=== PATIENT | female | born 1970 | race Caucasian/White ===

== ENCOUNTER → 2017-04-02 11:04 | Outpatient (CLI) | payer MEDICARE | END | disposition home or self-care (01) | LOC: D.CT 11:04 | DX: S00.83XA Contusion of other part of head, initial encounter (principal) ==

== ENCOUNTER 2018-03-20 08:55 | Emergency (ER) | payer MEDICARE ==
[2018-03-20 09:41] LABS: BASOPHILS 0.2 % (0-2); EOSINOPHILS 1.2 % (0-7); HEMATOCRIT 47.8 % (36.0-48.0); HEMOGLOBIN 16.9 g/dL (12-16); IMMATURE GRANULOCYTES 0.8 % (0-5); LYMPHOCYTES 29.3 % (15-50); MCH 32.6 pg (26.0-34.0); MCHC 35.4 g/dL (31.0-37.0); MCV 92.1 fL (80.0-100.0); MEAN PLATELET VOLUME 12.6 fL (7.4-10.4); MONOCYTES 7.3 % (2-11); NEUTROPHILS 61.2 % (40-80); RBC 5.19 10x6/uL (4.00-5.40); WBC 15.4 10x3/uL (4.8-10.8)
[2018-03-20 09:42] LABS: PLATELET COUNT 257 10x3/uL (130-400)
[2018-03-20 09:43] LABS: APPEARANCE HAZY (CLEAR); BILIRUBIN NEGATIVE (NEGATIVE); COLOR YELLOW (YELLOW); GLUCOSE NEGATIVE (NEGATIVE); KETONE NEGATIVE (NEGATIVE); NITRITE NEGATIVE (NEGATIVE); PROTEIN 1+ mg/dL (NEGATIVE); UROBILINOGEN NORMAL (NORMAL)
[2018-03-20 09:44] LABS: BACTERIA MANY /hpf (NONE SEEN); EPITHELIAL CELLS 0-5 /hpf (0-5); RED CELLS - URINE NONE SEEN /hpf (0-5); WHITE CELLS - URINE 0-5 /hpf (0-5)
[2018-03-20 10:04] LABS: ALBUMIN 3.8 g/dL (3.4-5.0); ANION GAP 13.8 mmol/L (8-16); BILIRUBIN - TOTAL 0.29 mg/dL (0.2-1.3); CALCIUM 9.4 mg/dL (8.5-10.1); CARBON DIOXIDE 28.7 mmol/L (21.0-32.0); CREATININE - SERUM 0.9 mg/dL (0.6-1.3); POTASSIUM - SERUM 3.5 mmol/L (3.5-5.1); PROTEIN - SERUM 7.9 g/dL (6.4-8.2)
== END 2018-03-20 14:12 | disposition home or self-care (01) ==
LOC: D.ER 08:55
PROVIDERS: Emergency Medicine
DX: R19.7 Diarrhea, unspecified (principal); E86.0 Dehydration; K50.90 Crohn's disease, unspecified, without complications

== ENCOUNTER 2018-04-29 18:00 | Outpatient (CLI) | payer MEDICARE | END 2018-04-29 23:59 | disposition home or self-care (01) | LOC: D.MAMMO 18:00 | DX: Z12.31 Encounter for screening mammogram for malignant neoplasm of breast (principal) ==

== ENCOUNTER 2018-06-01 08:00 | Outpatient (CLI) | payer MEDICARE | END 2018-06-01 09:00 | disposition home or self-care (01) | LOC: D.MAMMO 08:00 | DX: R92.8 Other abnormal and inconclusive findings on diagnostic imaging of breast (principal) ==

== ENCOUNTER 2018-07-06 21:07 | Emergency (ER) | payer MEDICARE ==
[~2018-07-06] VITALS: Ht 162.6 cm; Wt 59.1 kg
[2018-07-06 21:11] VITALS: Ht 162.6 cm; Wt 59.1 kg
[2018-07-06] MEDS ORDERED: ATIVAN2 MG PO (21:13)
[2018-07-06] MEDS ORDERED: [UNRECOGNIZED DRUG - REMARK] (21:13)
[2018-07-06 21:53] VITALS: BP 134/87
== END 2018-07-06 21:47 | disposition home or self-care (01) ==
LOC: D.ER 21:07
DX: F43.22 Adjustment disorder with anxiety (principal); F17.200 Nicotine dependence, unspecified, uncomplicated

== ENCOUNTER 2019-05-09 07:01 | Observation (INO) | payer MEDICARE ==
[~2019-05-09] VITALS: Ht 162.6 cm; Wt 65.8 kg
[~2019-05-09 07:01] MED LIST: ATIVAN2 MG PO; [UNRECOGNIZED DRUG - REMARK]
[2019-05-09] MEDS ORDERED: TENORMIN25 MG PO (07:10)
[2019-05-09] MEDS ORDERED: REXULTI1 MG PO (07:10)
[2019-05-09] MEDS ORDERED: CATAPRES0.1 MG PO (07:10)
[2019-05-09] MEDS ORDERED: AMBIEN10 MG PO (07:11)
[2019-05-09] MEDS ORDERED: AMITRIPTYLINE100 MG PO (07:11)
[2019-05-09] MEDS ORDERED: APRISO0.375 GM PO (07:12)
[2019-05-09] MEDS ORDERED: PHENERGAN25 M1 PO (07:12)
[2019-05-09] MEDS ORDERED: ZOFRAN8 MG PO (07:12)
[2019-05-09 07:50] LABS: APPEARANCE CLEAR (CLEAR); BILIRUBIN NEGATIVE (NEGATIVE); COLOR YELLOW (YELLOW); GLUCOSE NEGATIVE (NEGATIVE); KETONE NEGATIVE (NEGATIVE); NITRITE NEGATIVE (NEGATIVE); PROTEIN NEGATIVE (NEGATIVE); UROBILINOGEN NORMAL (NORMAL)
[2019-05-09 07:57] LABS: ALBUMIN 3.4 g/dL (3.4-5.0); ALKALINE PHOSPHATASE 107 U/L (46-116); ALT (SGPT) 10 U/L (10-68); CALC OSMOLALITY 275 mosm/kg (275-300); CALCIUM 8.7 mg/dL (8.5-10.1); CHLORIDE - SERUM 104 mmol/L (98-107); CREATININE - SERUM 0.8 mg/dL (0.6-1.3); GLUCOSE 137 mg/dL (74-106); POTASSIUM - SERUM 3.8 mmol/L (3.5-5.1); PROTEIN - SERUM 7.1 g/dL (6.4-8.2); SODIUM 138 mmol/L (136-145); UREA NITROGEN 8 mg/dL (7-18); eGFR NON AFRICAN AMERICAN 81 mL/min (90-120)
[2019-05-09 07:59] LABS: BASOPHILS 0.1 % (0-2); EOSINOPHILS 0.7 % (0-7); HEMOGLOBIN 15.9 g/dL (12-16); IMMATURE GRANULOCYTES 0.5 % (0-5); MCHC 35.3 g/dL (31.0-37.0); MCV 90.5 fL (80.0-100.0); MEAN PLATELET VOLUME 12.8 fL (7.4-10.4); MONOCYTES 5.6 % (2-11); NEUTROPHILS 73.1 % (40-80); RBC 4.97 10x6/uL (4.00-5.40); WBC 14.6 10x3/uL (4.8-10.8)
[2019-05-09 08:00] LABS: LIPASE 106 U/L (73-393); PLATELET COUNT 176 10x3/uL (130-400); TROPONIN-I < 0.017 ng/mL (0.000-0.060)
--- NOTE | 2019-05-09 09:06 | NUR ---
THIS NURSE WENT INTO PATIENT ROOM TO REASSESS HER AND PT WAS LYING ON HER LEFT SIDE ROCKING BACK AND FORTH REPORTING THE PAIN WAS BACK AND COMING IN WAVES. PT IS [id number]. PT NEEDS AND STATUS REPORTED TO DR ROCHA WHO STATES HE SAYS HE WILL ADMIT PATIENT.
--- NOTE | 2019-05-09 09:31 | NUR ---
PT TO CT
--- NOTE | 2019-05-09 09:35 | NUR ---
PT BACK FROM CT
[2019-05-09 09:37] VITALS: BP 172/83
--- NOTE | 2019-05-09 11:00 | NUR ---
RECEIVED TO ROOM 2207 VAI WC FROM . A/O X3. NO C/O AT THIS TIME. SKIN INTACT WTIHOUT REDNESS. REPORTS PAIN IMPROVED AT THIS TIME.
[2019-05-09 11:42] VITALS: BP 152/77; BMI 24.9
--- NOTE | 2019-05-09 12:55 | NUR ---
REQUESTED AND GIVEN 2MG MORPHINE SLOW IVP FOR C/O ABDOMINAL PAIN LEVEL 5. WILL MONITOR.
--- NOTE | 2019-05-09 15:23 | NUR ---
REQUESTED AND GIVEN 2MG MORPHINE SLOW IVP FOR C/O ABDOMINAL PAIN LEVEL 6. WILL MONITOR.
[2019-05-09 17:12] VITALS: BP 126/75
--- NOTE | 2019-05-09 17:36 | NUR ---
REQUESTED AND GIVNE 2MG MORPHINE SLOW IVP FOR C/O ABDOMINAL PAIN LEVEL 6. WILL MONITOR.
--- NOTE | 2019-05-09 17:57 | NUR ---
ATE ONLY A FEW BITES OF CL SUPPER. DENIES NEEDS. NO CHANGES NOTED. VOICES" NURSE HERE. AWAITING ORDERS.
[2019-05-09 19:30] VITALS: BP 134/74
--- NOTE | 2019-05-09 20:30 | NUR ---
PT C/O OF SWEATY FACE AND DIFFICULTY FALLING ASLEEP. STATES SHE TAKES AMBIEN FOR SLEEP AT HOME CLONIDE FOR HER SWEATS AT HOME. MED REC HAS BEEN COMPLETED, BUT MED LIST IS NOT COMPLETED BY PROVIDER. PT WORRIED ABOUT HER DIFFULTY FALLING HER SLEEP. WILL NOTIFY CHILD NUTRITION DIRECTOR ABOUT PT'S NEEDS. CL WITHIN REACH.
--- NOTE | 2019-05-09 22:00 | NUR ---
CALLED [facility] RUTH. SHOP MECHANIC HELPER STATES TO ADMINISTER 2MG X1 DOSE OF LUNESTA AND CLONIDINE 0.1 X1 DOSE FOR THE NIGHT BEFORE SHE IS SEEN BY PROVIDER IN THE AM. ORDERED RECIEVED AND READ BACK TO [facility] RUTH. ORDERS PUT IN AND AWAITING ANODE REBUILDER TO PULL MEDS FROM [facility].
--- NOTE | 2019-05-09 22:52 | NUR ---
CLONIDINE AND LUNESTA GIVEN AT THIS TIME. PT VOICED THANKS. WILL CPOC.
[2019-05-10 00:25] VITALS: BP 151/83
[2019-05-10 05:15] VITALS: BP 116/57
[2019-05-10 06:10] LABS: BASOPHILS 0 % (0-2); EOSINOPHILS 0 % (0-7); HEMATOCRIT 39.6 % (36.0-48.0); HEMOGLOBIN 13.7 g/dL (12-16); IMMATURE GRANULOCYTES 0.3 % (0-5); MCH 31.6 pg (26.0-34.0); MCHC 34.6 g/dL (31.0-37.0); MCV 91.5 fL (80.0-100.0); MEAN PLATELET VOLUME 12.6 fL (7.4-10.4); MONOCYTES 4.2 % (2-11); NEUTROPHILS 81.5 % (40-80); PLATELET COUNT 148 10x3/uL (130-400); RBC 4.33 10x6/uL (4.00-5.40); RDW 13.1 % (11.5-14.5); WBC 15.1 10x3/uL (4.8-10.8)
[2019-05-10 06:28] LABS: ALBUMIN 2.6 g/dL (3.4-5.0); ALKALINE PHOSPHATASE 81 U/L (46-116); ALT (SGPT) 10 U/L (10-68); BILIRUBIN - TOTAL 0.17 mg/dL (0.2-1.3); CALC OSMOLALITY 280 mosm/kg (275-300); CALCIUM 7.8 mg/dL (8.5-10.1); CHLORIDE - SERUM 107 mmol/L (98-107); CREATININE - SERUM 0.7 mg/dL (0.6-1.3); GLUCOSE 144 mg/dL (74-106); POTASSIUM - SERUM 3.5 mmol/L (3.5-5.1); PROTEIN - SERUM 5.7 g/dL (6.4-8.2); SODIUM 141 mmol/L (136-145); eGFR NON AFRICAN AMERICAN > 90 mL/min (90-120)
[2019-05-10 06:40] LABS: UREA NITROGEN 5 mg/dL (7-18)
[2019-05-10 07:45] LABS: ERYTHROCYTE SEDIMENTATION RATE 14 mm/hr (0-20)
[2019-05-10 07:48] VITALS: BP 127/60
--- NOTE | 2019-05-10 08:35 | NUR ---
PT RESTING IN BED, SHIFT ASSESSMENT PERFORMED. DENIES ANY NEEDS AT THIS TIME. WILL CONT TO FOLLOW POC
[2019-05-10 10:15] VITALS: Ht 162.6 cm; Wt 65.8 kg
[2019-05-10 11:41] VITALS: BP 116/53
--- NOTE | 2019-05-10 17:25 | NUR ---
CALLED PREDNISONE TAPER IN TO [facility] ON [address] DISCHARGE INSTRUCTIONS REVIEWED WITH PT AND ALL QUESTIONS ANSWERED. PIV REMOVED WITH CATHETER TIP INTACT. TELEMETRY REMOVED AND GIVEN TO COLLISION ESTIMATOR. ASSISTED PT TO FRONT OF HOSPITAL VIA WHEELCHAIR WHERE SHE LEFT WITH SPOUSE
== END 2019-05-10 17:29 | disposition home or self-care (01) ==
LOC: D.ER 07:01 → D.M3 09:20 → OBSVTIME 09:21 → D.M3 05-10 17:29
PROVIDERS: Family Medicine; Internal Medicine Gastroenterology; ADMIT Emergency Medicine; ATTEND Emergency Medicine
DX: K50.90 Crohn's disease, unspecified, without complications (principal); I10 Essential (primary) hypertension; K59.00 Constipation, unspecified; R63.4 Abnormal weight loss; R11.2 Nausea with vomiting, unspecified

== ENCOUNTER → 2021-01-22 10:54 | Outpatient (CLI) | payer MEDICARE ==
[2019-05-10 10:15] VITALS: BMI 24.9
[~2021-01-22 10:54] MED LIST changes: +AMBIEN10 MG PO; +AMITRIPTYLINE100 MG PO; +APRISO0.375 GM PO; +CATAPRES0.1 MG PO; +PHENERGAN25 M1 PO; +REXULTI1 MG PO; +TENORMIN25 MG PO; +ZOFRAN8 MG PO
[2021-01-22 11:21] LABS: BASOPHILS 0.3 % (0-2); EOSINOPHILS 2.2 % (0-7); HEMATOCRIT 43.1 % (36.0-48.0); HEMOGLOBIN 14.3 g/dL (12-16); IMMATURE GRANULOCYTES 0.5 % (0-5); LYMPHOCYTE ABS# 3.57 10x3/uL (1.18-3.74); LYMPHOCYTES 36.3 % (15-50); MCH 31.9 pg (26.0-34.0); MCHC 33.2 g/dL (31.0-37.0); MCV 96.2 fL (80.0-100.0); MONOCYTES 8.9 % (2-11); NEUTROPHIL ABS# 5.09 10x3/uL (1.56-6.13); NEUTROPHILS 51.8 % (40-80); PLATELET COUNT 146 10x3/uL (130-400); RBC 4.48 10x6/uL (4.00-5.40); RDW 14.7 % (11.5-14.5); WBC 9.8 10x3/uL (4.8-10.8)
[2021-01-22 11:38] LABS: ALBUMIN 3.9 g/dL (3.4-5.0); ALKALINE PHOSPHATASE 107 U/L (30-120); ALT (SGPT) 48 U/L (10-68); BILIRUBIN - TOTAL 0.23 mg/dL (0.2-1.3); CALC OSMOLALITY 275 mosm/kg (275-300); CALCIUM 8.8 mg/dL (8.5-10.1); CARBON DIOXIDE 29.1 mmol/L (21.0-32.0); CHLORIDE - SERUM 104 mmol/L (98-107); CREATININE - SERUM 0.8 mg/dL (0.6-1.3); POTASSIUM - SERUM 3.9 mmol/L (3.5-5.1); SODIUM 139 mmol/L (136-145); UREA NITROGEN 8 mg/dL (7-18); eGFR NON AFRICAN AMERICAN 80 mL/min (90-120)
[2021-01-22 11:39] LABS: GLUCOSE 95 mg/dL (74-106)
[2021-01-22 13:02] LABS: ERYTHROCYTE SEDIMENTATION RATE 5 mm/hr (0-30)
== END | disposition home or self-care (01) ==
LOC: D.LAB 10:54
PROVIDERS: ATTEND Internal Medicine Gastroenterology
DX: K50.90 Crohn's disease, unspecified, without complications (principal)

== ENCOUNTER → 2021-02-07 10:59 | Outpatient (CLI) | payer MEDICARE ==
[2019-05-10 10:15] VITALS: BMI 24.9
[2021-02-07 11:48] LABS: ALBUMIN 4.6 g/dL (3.4-5.0); BILIRUBIN - DIRECT 0.09 mg/dL (0.00-0.30); BILIRUBIN - INDIRECT 0.22 mg/dL (0.00-1.00); BILIRUBIN - TOTAL 0.31 mg/dL (0.2-1.3)
[2021-02-07 11:56] LABS: BASOPHILS 0.2 % (0-2); EOSINOPHILS 0.7 % (0-7); HEMATOCRIT 46.3 % (36.0-48.0); IMMATURE GRANULOCYTES 0.2 % (0-5); LYMPHOCYTE ABS# 3.47 10x3/uL (1.18-3.74); LYMPHOCYTES 34.3 % (15-50); MCH 31.9 pg (26.0-34.0); MCHC 34.6 g/dL (31.0-37.0); MCV 92.4 fL (80.0-100.0); MEAN PLATELET VOLUME 12.1 fL (7.4-10.4); MONOCYTES 6.1 % (2-11); NEUTROPHIL ABS# 5.91 10x3/uL (1.56-6.13); NEUTROPHILS 58.5 % (40-80); RBC 5.01 10x6/uL (4.00-5.40); WBC 10.1 10x3/uL (4.8-10.8)
[2021-02-07 11:57] LABS: PLATELET COUNT 191 10x3/uL (130-400)
== END | disposition home or self-care (01) ==
LOC: D.LAB 10:59
PROVIDERS: ATTEND Internal Medicine Gastroenterology
DX: K50.10 Crohn's disease of large intestine without complications (principal)

== ENCOUNTER → 2021-03-07 10:44 | Outpatient (CLI) | payer MEDICARE ==
[2019-05-10 10:15] VITALS: BMI 24.9
[2021-03-07 11:07] LABS: BASOPHILS 0.6 % (0-2); EOSINOPHILS 2.1 % (0-7); HEMATOCRIT 45.9 % (36.0-48.0); HEMOGLOBIN 15.5 g/dL (12-16); LYMPHOCYTES 39.3 % (15-50); MCH 31.9 pg (26.0-34.0); MCHC 33.9 g/dL (31.0-37.0); MCV 94.3 fL (80.0-100.0); MEAN PLATELET VOLUME 9.8 fL (7.4-10.4); MONOCYTES 5.7 % (2-11); NEUTROPHILS 52.3 % (40-80); RBC 4.87 10x6/uL (4.00-5.40); RDW 14.4 % (11.5-14.5); WBC 9.6 10x3/uL (4.8-10.8)
[2021-03-07 11:14] LABS: PLATELET COUNT 136 10x3/uL (130-400)
[2021-03-07 11:23] LABS: ALBUMIN 4.3 g/dL (3.4-5.0); BILIRUBIN - DIRECT 0.09 mg/dL (0.00-0.30); BILIRUBIN - INDIRECT 0.18 mg/dL (0.00-1.00); BILIRUBIN - TOTAL 0.27 mg/dL (0.2-1.3); PROTEIN - SERUM 7.4 g/dL (6.4-8.2)
== END | disposition home or self-care (01) ==
LOC: D.LAB 10:44
PROVIDERS: ATTEND Internal Medicine Gastroenterology
DX: K50.10 Crohn's disease of large intestine without complications (principal)